=== PATIENT | male | born 1965 | race Caucasian/White ===

== ENCOUNTER 2018-01-17 20:27 | Emergency (ER) | payer BC, OTHER ==
[2018-01-17 20:42] VITALS: O2SAT 96
--- NOTE | 2018-01-17 21:17 | ERPHSYRPT ---
- History of Present Illness Time Seen by Provider: 01/17/18 20:55 Source: patient Exam Limitations: clinical condition Patient Subjective Stated Complaint: Right arm pain, worse with movement. Redness noted. Triage Nursing Assessment: Pt presents to the ED with complaints of right elbow pain, worse with movement. Pt has swelling noted to right elbow, mild redness noted. Pt states not getting any better so he wanted to be seen. No distress noted. Skin pwd. Physician History: PATIENT STATES WHILE AT WORK SWINGING A 20 POUND HAMMER AGAINST METAL HE FELT PAIN IN HIS RIGHT ELBOW AND HAS PROGRESSIVE SWELLING WITH PAIN IN HIS RIGHT ELBOW, FOREARM AND NOW HIS HAND IS SWOLLEN. HE DENIES FALL OR TRAUMA TO HIS ARM. Occurred: days ago Method of Injury: other (PAIN AFTER SWINGING 20 POUND HAMMER AGAINST METAL) Severity of Pain-Max: moderate Severity of Pain-Current: moderate Extremities Pain Location: arm: right, elbow: right, forearm: right, wrist: right Modifying Factors: Improves With: movement Associated Symptoms: other (SWELLING OF RIGHT HAND) Allergies/Adverse Reactions: No Known Drug Allergies Allergy (Unverified 01/17/18 20:45) Hx Tetanus, Diphtheria Vaccination/Date Given: No Hx Influenza Vaccination/Date Given: No Hx Pneumococcal Vaccination/Date Given: No Immunizations Up to Date: No - Past Medical History Pertinent Past Medical History: No Neurological History: No Pertinent History ENT History: No Pertinent History Cardiac History: No Pertinent History Respiratory History: No Pertinent History Endocrine Medical History: No Pertinent History Musculoskeletal History: No Pertinent History GI Medical History: No Pertinent History History: No Pertinent History Psycho-Social History: No Pertinent History Male Reproductive Disorders: No Pertinent History - Past Surgical History Past Surgical History: No Neuro Surgical History: No Pertinent History Cardiac: No Pertinent History Respiratory: No Pertinent History Gastrointestinal: No Pertinent History Genitourinary: No Pertinent History Musculoskeletal: No Pertinent History Male Surgical History: No Pertinent History - Social History Smoking Status: Never smoker Exposure to second hand smoke: No Drug Use: none Patient Lives Alone: No - Nursing Vital Signs Nursing Vital Signs: Initial Vital Signs Temperature 97.7 F 01/17/18 20:38 Pulse Rate 78 01/17/18 20:38 Respiratory Rate 14 01/17/18 20:38 Blood Pressure 162/95 01/17/18 20:38 O2 Sat by Pulse Oximetry 96 01/17/18 20:38 Pain Scale Pain Intensity 1 - Physical Exam General Appearance: no apparent distress Elbow/Forearm Exam: limited ROM, pain (TENDERNESS WITH SWELLING OVER RIGHT OLECRANON, SWELLING WITH TENDERNESS OVER LATERAL EPICONDYLE, PROXIMAL FOREARM SWELLING WITH TENDERNESS, RIGHT RADIAL PULSE 2+, SWELLING DORSUM RIGHT HAND), soft tissue tenderness DTR - Upper Extremity Exam: bicep (R): 2+, bicep (L): 2+, tricep (R): 2+, tricep (L): 2+ Mental Status Exam: alert SpO2 Interpretation: normal SpO2: 96 Oxygen Delivery: Room Air - Radiology Exams Right Elbow X-ray Interpretation: Interpreted by me, Negative, No Fracture (NO DISLOCATION) Right Hand X-ray Interpretation: Interpreted by me (NO FRACTURE OR DISLOCATION) - Radiology Ultrasound Exam Right Venous Upper Extremity Ultrasound: discussed w/radiologist (NO DVT) Ordered Tests: Active Orders 24 hr Category Date Time Status Sling Application STAT Care 01/17/18 22:35 Active ELBOW (MINIMUM 3 VIEWS) Stat Exams 01/17/18 21:13 Taken HAND (MINIMUM 3 VIEWS) Stat Exams 01/17/18 21:13 Taken VENOUS UNILAT/LIMITED EXTREMIT [US] Stat Exams 01/17/18 22:13 Taken - Progress Progress: unchanged Progress Note: 01/17/18 23:01 ADMINISTERED PREDNISONE 60MG ORAL, APPLICATION RIGHT ARM SLING Counseled pt/family regarding: diagnosis, rad results - Departure Time of Disposition: 23:10 Departure Disposition: Home Clinical Impression: TENDONITIS RIGHT FOREARM, OLECRANON BURSITIS RIGHT ELBOW Condition: Stable Critical Care Time: No Additional Instructions: FOLLOWUP WITH A PRIMARY CARE PROVIDER IN 1 WEEK. WEAR RIGHT ARM SLING FOR COMFORT FOR 5 DAYS THEN DISCARD. ELEVATE RIGHT HAND WHILE SITTING OR SUPINE POSITION. ANTIBIOTIC KEFLEX 500MG EVERY 8 HOURS FOR 10 DAYS. TORADOL 10MG EVERY 6 HOURS FOR 5 DAYS. PREDNISONE 20MG, 40MG DAILY FOR 5 DAYS. NORCO 10/325 EVERY 4 HOURS FOR SEVERE PAIN. Prescriptions: Hydrocodone/APAP 10/325 mg [Rumsey 10/325 MG Tablet] 1 tab PO Q4H PRN PRN # 10 tablet MDD 4 PRN Reason: Pain Ketorolac Tromethamine [Toradol] 10 mg PO Q6HPRN PRN 5 Days #20 tablet PRN Reason: Pain Cephalexin Mh 500 mg [Keflex 500 mg] 500 mg PO TID #30 capsule Prednisone 20 mg [Deltasone 20 mg] 40 mg PO DAILY #10 tablet
[2018-01-17] MEDS ORDERED: DELTASONE 20 MG PO ONE (22:51)
[2018-01-17] MEDS ORDERED: DELTASONE 20 MG ONE (22:56)
[2018-01-17 23:22] VITALS: BP 134/75; PULSE 75
--- NOTE | 2018-01-17 23:48 | XRAY ---
Indication: Right arm pain and swelling. Two-dimensional sonogram and color Doppler imaging of the major venous vessels of the right upper extremity was performed. Comparison: None No thrombus seen in the visualized right jugular, subclavian, axillary, cephalic, basilic, brachial, median cubital, radial, and ulnar veins. Veins demonstrate normal compressibility. Venous waveforms are normal. Impression: Right upper extremity venous ultrasound exam is negative. Comment: Preliminary report was given.
--- NOTE | 2018-01-17 23:51 | XRAY ---
Indication: Pain and edema. No known injury. Comparison: None 3 views of the right elbow demonstrates tiny spurring of the olecranon and coronoid processes. No other bony, articular, or soft tissue abnormalities.
--- NOTE | 2018-01-17 23:51 | XRAY ---
Indication: Pain and edema. No known injury. Comparison: None 3 views of the right hand obtained. No bony, articular, or soft tissue abnormalities.
== END 2018-01-17 23:22 | disposition home or self-care (01) ==
LOC: ED 20:27
DX: M77.9 Enthesopathy, unspecified (principal); M70.21 Olecranon bursitis, right elbow; X58.XXXA Exposure to other specified factors, initial encounter; Y93.H3 Activity, building and construction; Y99.0 Civilian activity done for income or pay
CPT/HCPCS: 73080; 73130; 93971; 99283; A9270-GY